=== PATIENT | female | born 1990 | race Caucasian/White ===

== ENCOUNTER 2020-10-19 | Outpatient (CLI) | payer BC | END 2020-10-19 14:33 | disposition home or self-care (01) | DX: Z01.812 Encounter for preprocedural laboratory examination (principal); S60.452A Superficial foreign body of right middle finger, initial encounter; Z20.822 Contact with and (suspected) exposure to COVID-19 | CPT/HCPCS: 84703; 85025; U0003; U0005 ==

== ENCOUNTER 2020-12-08 07:43 | Outpatient (CLI) | payer BC | END 2020-12-08 07:44 | disposition home or self-care (01) | LOC: BICMRI 07:43 | PROVIDERS: ATTEND Nurse Practitioner Family | DX: M54.2 Cervicalgia (principal); M47.812 Spondylosis without myelopathy or radiculopathy, cervical region; M48.02 Spinal stenosis, cervical region; M25.78 Osteophyte, vertebrae | CPT/HCPCS: 72141 ==

== ENCOUNTER 2021-01-15 09:47 | Outpatient (CLI) | payer BC | END 2021-01-15 09:48 | disposition home or self-care (01) | LOC: BICMRI 09:47 | PROVIDERS: ATTEND Psychiatry & Neurology Neurology | DX: M47.812 Spondylosis without myelopathy or radiculopathy, cervical region (principal) | CPT/HCPCS: 70553; 72156 ==